=== PATIENT | female | born 1995 ===

== ENCOUNTER 2018-03-16 23:15 | Emergency (ER) | payer SELFPAY ==
[2018-03-17] MEDS ORDERED: Amoxicillin-Clav 875-125 mg Tab PO STA
[2018-03-17] MEDS ORDERED: Oxycodone/Acetaminophen 5/325 mg Tab PO STA
[2018-03-17 00:03] VITALS: BP 114/77; PULSE 101; RESP 18; TEMP 98.5; O2SAT 100
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
== END 2018-03-17 00:20 | disposition home or self-care (01) ==
LOC: C.ER 23:15
DX: S09.22XA Traumatic rupture of left ear drum, initial encounter (principal); Y08.89XA Assault by other specified means, initial encounter; Y92.9 Unspecified place or not applicable